=== PATIENT | male | born 1945 | race Asian ===

== ENCOUNTER 2017-12-15 07:46 | Emergency (ER) | payer OTHER ==
[~2017-12-15] VITALS: Ht 157.5 cm; Wt 72.6 kg
--- NOTE | 2017-12-16 19:44 | EKG ---
[facility] [address] [place], [place] [address] Signed Normal sinus rhythm Normal ECG No previous ECGs available Confirmed by LIVE MAN MD ([id number]) on 12/16/2017 7:43:46 PM Electronically Signed By: LIVE MAN MD 12/16/17 1944 PATIENT NAME: Gage MURILLO Electrocardiogram DATE OF : 41 PHYSICIAN: LIVE MAN MD REPORT #: [id number] REPORT IS CONFIDENTIAL AND NOT TO BE RELEASED WITHOUT AUTHORIZATION
== END 2017-12-15 09:32 | disposition home or self-care (01) ==
LOC: ED 07:46
PROC: 2W3DX1Z Immobilization of Left Lower Arm using Splint (ICD-10-PCS; principal; 2017-12-15)
DX: S69.92XA Unspecified injury of left wrist, hand and finger(s), initial encounter (principal); F17.200 Nicotine dependence, unspecified, uncomplicated; W19.XXXA Unspecified fall, initial encounter
CPT/HCPCS: 29125; 73110; 93005; 93010; 99283